=== PATIENT | male | born 1960 | race African-American/Black ===

== ENCOUNTER 2024-01-23 11:55 | Emergency (ER) | payer OTHER, SELFPAY ==
[2024-01-23 12:27] VITALS: BP 125/87; PULSE 70; RESP 16; TEMP 36.2; O2SAT 100
--- NOTE | 2024-01-23 12:34 | ED.WOUNDLAC ---
HPI - Wound/Laceration General Chief Complaint: Wound/Laceration Stated Complaint: Cut Finger Source: patient Mode of arrival: ambulatory Limitations: no limitations History of Present Illness HPI narrative: 63 y/o male with DM presented for c/o laceration to the left thumb sustained 3 days ago. States he cut the thumb on a can in the garbage when he smashed the trash. He was able to get the bleeding stopped, and cleansed with hydrogen peroxide. Endorses mild swelling and says the site is still open and painful. Denies bleeding or drainage, numbness, tingling or weakness. Related Data Home Medications Medication Instructions Recorded Confirmed amlodipine 5 mg tablet mg 01/23/24 clonidine HCl 0.2 mg tablet mg 01/23/24 empagliflozin 25 mg tablet mg 01/23/24 (Jardiance) ergocalciferol (vitamin D2) 1,250 01/23/24 mcg (50,000 unit) capsule ezetimibe 10 mg-simvastatin 10 mg tablet 01/23/24 tablet glipizide 10 mg tablet mg 01/23/24 hydralazine 50 mg tablet mg 01/23/24 metformin 500 mg tablet,extended mg PO 01/23/24 release 24 hr metoprolol succinate 25 mg mg PO 01/23/24 tablet,extended release 24 hr tamsulosin 0.4 mg capsule mg PO 01/23/24 Review of Systems Review of Systems: CONSTITUTIONAL: Denies body aches, fever, chills, or sweats. CARDIOVASCULAR: Denies chest pain, palpitations, or edema. RESPIRATORY: Denies cough or dyspnea. SKIN: per HPI MUSCULOSKELETAL: Denies back pain, joint pain, or myalgia. [facility] Past Medical History Medical History (Updated 01/23/24 @ 12:50 by Muriel Dsouza APRN) Diabetes Hypertension Comments At time of signature, I have reviewed and agree with nursing past medical, surgical, social and family history unless otherwise noted. Please see nursing chart for further information. There is no relevant family history pertinent to the presenting complaint Exam Narrative: GENERAL: Well-appearing ENT: Mucous membranes moist. Oropharynx without edema, erythema or lesions. CHEST: Clear to auscultation. HEART: Regular rate and rhythm. SKIN: Warm, dry. left thumb distal phalanx 2.5cm laceration approx 1mm gaping, no active drainage. mild swelling. CMS intact. no nail involvement. NEURO: Alert and oriented x3. Course Course Emergency Course: Patient is aware of diagnosis, understands and agrees to treatment plan. Anticipatory guidance given. Patient agrees to follow-up as directed and is aware of reasons to seek care at the emergency department. Portions of this record may have been created with voice recognition software Level of Care: Express Care Visit Vital Signs Vital signs: Vital Signs Temperature 97.1 F L 01/23/24 12:27 Pulse Rate 70 01/23/24 12:27 Respiratory Rate 16 01/23/24 12:27 Blood Pressure 125/87 01/23/24 12:27 Pulse Oximetry 100 01/23/24 12:27 Temperature 97.1 F L 01/23/24 12:27 Pulse Rate 70 01/23/24 12:27 Respiratory Rate 16 01/23/24 12:27 Blood Pressure 125/87 01/23/24 12:27 Pulse Oximetry 100 01/23/24 12:27 Reviewed Procedures Laceration left thumb: Date: 01/23/24 Size (cm): 2.5 Description: linear and clean Depth: simple, single layer Pre-repair: other (cleansed with skintegrity) ====== Skin Level ====== Skin layer closed with: steri strips ====== Subcutaneous Layer ====== ====== Muscle Layer ====== ====== Tendon Layer ====== MDM - Wound/Laceration MDM Narrative Medical decision making narrative: Discussed physical exam findings, Steri-Strips applied after wound cleansed. Rx cephalexin. Advised supportive measures and signs/symptoms to go to the ER. Pt is appropriate for outpt treatment and f/u. Differential Diagnosis Differential diagnosis: Likely laceration, abscess, abrasion and avulsion of skin Discharge Plan Discharge Clinical Impression: Finger laceration Patient Disposition: Home, Self-Ca
== END 2024-01-23 12:55 | disposition home or self-care (01) ==
PROVIDERS: Emergency Provider Nurse Practitioner Family
DX: S61.012A Laceration without foreign body of left thumb without damage to nail, initial encounter (principal); W45.8XXA Other foreign body or object entering through skin, initial encounter; E11.9 Type 2 diabetes mellitus without complications; I10 Essential (primary) hypertension
CPT/HCPCS: 99213; G0463